=== PATIENT | male | born 2000 | race Two or more races ===

== ENCOUNTER 2023-11-26 04:17 | Emergency (ER) | payer BC, OTHER ==
[~2023-11-26] VITALS: Ht 180.3 cm; Wt 95.0 kg
[2023-11-26 06:59] VITALS: BP 138/82; PULSE 86; RESP 16; TEMP 99.5; O2SAT 97
[2023-11-26] MEDS: ACETAMINOPHEN 500 MG TAB PO ONE (07:14)
[2023-11-26] MEDS ORDERED: IBUP-1456 PO (07:30)
[2023-11-26] MEDS ORDERED: CYCL-839 PO (07:30)
== END 2023-11-26 07:38 | disposition home or self-care (01) ==
LOC: ER 04:17
DX: S53.492A Other sprain of left elbow, initial encounter (principal); S63.8X2A Sprain of other part of left wrist and hand, initial encounter; Z79.1 Long term (current) use of non-steroidal anti-inflammatories (NSAID); Z79.899 Other long term (current) drug therapy; V49.9XXA Car occupant (driver) (passenger) injured in unspecified traffic accident, initial encounter; Y93.89 Activity, other specified; Y92.89 Other specified places as the place of occurrence of the external cause; Y99.8 Other external cause status
CPT/HCPCS: 73080; 73130